=== PATIENT | female | born 1990 | race Caucasian/White ===

== ENCOUNTER → 2017-05-23 17:00 | Outpatient (CLI) | payer OTHER, MEDICAID, SELFPAY ==
[2017-05-23 16:46] VITALS: BP 126/76; BMI 28.0
== END ==
PROVIDERS: Family Provider Family Medicine; PCP Family Medicine; Visit Provider Obstetrics & Gynecology
DX: O09.899 Supervision of other high risk pregnancies, unspecified trimester (principal)
CPT/HCPCS: 86850; 86900

== ENCOUNTER → 2017-07-20 09:14 | Outpatient (CLI) | payer OTHER, MEDICAID, SELFPAY ==
--- NOTE | 2017-07-20 09:16 | US_ITS ---
STUDY: SECOND AND THIRD TRIMESTER OBSTETRICAL ULTRASOUND REASON FOR EXAM: Female, 26 years old. Evaluate anatomy LMP: 03/06/2017 TECHNIQUE: Transabdominal and Transvaginal PRIOR ULTRASOUND: None. FINDINGS: There is a single intrauterine fetus. The fetus is in a cephalic presentation. There is demonstrated cardiac activity with a heart rate of 155 bpm. There is a normal amniotic fluid volume. The largest amniotic fluid pocket measures 6.5 cm. The ROSANGELA was not calculated. The placenta is right posterolateral. There is a marginal previa. There are Grade 0 placental changes. The cervix measures 4.0 cm in length. The adnexal regions are not visualized. BIOMETRY: BPD: 4.20 cm: 18 weeks, 6 days HC: 16.47 cm: 19 weeks, 2 days AC: 14.07 cm: 19 weeks, 4 days FL: 2.82 cm: 18 weeks, 5 days CI: 75% FL/BPD: 67% : FL/AC: 20% HC/AC: 1.17 age by current US: 19 weeks, 1 days. WILL by current US: 12/13/2017. Estimated weight: 272 grams, +/- 40 grams, 26 %. Age by LMP: 19 weeks, 3 days. WILL by LMP: [id number]. ANATOMY: Gender: Male Cranium: Normal lateral ventricles. Lateral ventricle measures 0.63 cm Normal choroid plexus. Normal cerebellum cerebellum measures 1.74 cm. Normal cisterna magna. Cisterna magna measures 0.29 cm Normal face, nose and lips. Chest: Normal 4-chamber heart. Abdomen/Pelvis: Normal diaphragm. Normal stomach. Normal abdominal wall. Normal cord insertion. Normal 3 vessel cord. Normal kidneys. Normal bladder. Spine: Normal cervical spine. Normal thoracic spine. Normal lumbar spine. Normal sacrum. Extremities: Normal bilateral upper extremities. Normal bilateral lower extremities. US/OB Anatomy Scan IMPRESSION: Single viable intrauterine of approximately 19 weeks 1 day gestational age by current ultrasonographic measurement. A heart rate of 155 bpm is noted. Other findings as detailed above. Electronically Signed: Jeramy Gonzalez MD at 23:59 EDT , Service support ,
== END ==
PROVIDERS: Family Provider Family Medicine; PCP Family Medicine; Visit Provider Obstetrics & Gynecology
DX: Z34.81 Encounter for supervision of other normal pregnancy, first trimester (principal)
CPT/HCPCS: 76805

== ENCOUNTER → 2017-09-18 10:24 | Outpatient (CLI) | payer OTHER, MEDICAID, SELFPAY ==
[2017-09-18 09:28] LABS: Absolute Lymphocyte Count 1.61 X10^3/ul (0.83-4.51); Absolute Neutrophil Count 4.8 X10^3/uL (2.0-7.7); Basophil# 0.01 X10^3/uL; Basophil% 0.1 % (0-1); Eosinophil# 0.08 X10^3/uL; Eosinophils% 1.2 % (0-5); Hematocrit 30.3 % (37-47); Hemoglobin 10.1 g/dl (12.0-15.0); Lymphocyte # 1.61 X10^3/ul (4.0); Lymphocyte % 23.6 % (19-41); Mean Corp Hgb Conc 33.3 g/gl (32-36); Mean Corpuscular Hgb 30.8 pg (27.0-32.0); Mean Corpuscular Volume 92.4 fL (81-99); Mean Platelet Vol. 8.9 fl (6.2-12.0); Monocyte# 0.34 X10^3/uL; Neutrophil # 4.76 X10^3/uL (2.7-7.7); Platelet Count 263 K/mm3 (150-450); RBC Distribution Width CV 12.6 % (11.6-14.6); RBC Distribution Width SD 42.8 fl (35.1-43.9); Red Blood Count 3.28 M/mm3 (4.2-5.4); White Blood Count 6.8 K/mm3 (4.4-11.0)
[2017-09-18 09:29] LABS: POSITIVE COUNT NO; POSITIVE DIFFERENTIAL NO; POSITIVE MORPHOLOGY NO
[2017-09-18 09:49] LABS: Glucose Challenge Gest 1H 50g 118 mg/dL (70-140)
--- NOTE | 2017-09-18 10:27 | US_ITS ---
STUDY: SECOND AND THIRD TRIMESTER OBSTETRICAL ULTRASOUND - LIMITED REASON FOR EXAM: Female, 26 years old. Placental recheck. LMP: March 06, 2017. PRIOR ULTRASOUND: Comparison is made with prior examination dated July 20, 2017. TECHNIQUE: Transabdominal ultrasound evaluation was performed. FINDINGS: There is a single intrauterine fetus. The fetus is in a cephalic presentation. There is demonstrated cardiac activity with a heart rate of 150 bpm. There is a normal amniotic fluid volume. The largest amniotic fluid pocket measures 4.3 cm. The amniotic fluid index (ROSANGELA) is 12.86 cm. The placenta is posterior in location and is not low lying. There are Grade 1 placental changes. The cervix measures 4.01 cm in length. BIOMETRY: BPD: 7.22 cm: 29 weeks, 0 days HC: 26.63 cm: 29 weeks, 1 days AC: 23.83 cm: 28 weeks, 1 days FL: 5.36 cm: 28 weeks, 3 days Age by LMP: 28 weeks, 0 days. WILL by LMP: December 11, 2017. age by prior US: 27 weeks, 5 days. WILL by prior US: December 13, 2017. age by current US: 28 weeks, 5 days. WILL by current US: December 06, 2017. Estimated weight: 1216 grams, +/- 178 grams, 52 percentile. Gender: Male US/OB Limited With Biometrics IMPRESSION: Single live intrauterine gestation with a mean gestational age of 27 weeks and 5 days. The measurements obtained today following the normal expected range. The placenta is not low-lying. The lower tip is at 4.2 cm proximal to the cervix. Electronically Signed: Blas Sexton MD at 13:03 EDT Tel [phone], Service support ,
== END ==
PROVIDERS: Family Provider Family Medicine; PCP Family Medicine; Visit Provider Nurse Practitioner Women's Health
DX: O09.891 Supervision of other high risk pregnancies, first trimester (principal); O44.20 Partial placenta previa NOS or without hemorrhage, unspecified trimester; Z3A.00 Weeks of gestation of pregnancy not specified
CPT/HCPCS: 36415; 76816; 82950; 85025; 86850; 86900

== ENCOUNTER → 2017-11-19 08:31 | Outpatient (CLI) | payer OTHER, MEDICAID, SELFPAY ==
[2017-11-19 08:49] LABS: Absolute Lymphocyte Count 1.51 X10^3/ul (0.83-4.51); Absolute Neutrophil Count 5.4 X10^3/uL (2.0-7.7); Basophil# 0.02 X10^3/uL; Basophil% 0.3 % (0-1); Eosinophil# 0.09 X10^3/uL; Eosinophils% 1.2 % (0-5); Hematocrit 32.2 % (37-47); Hemoglobin 10.8 g/dl (12.0-15.0); Lymphocyte # 1.51 X10^3/ul (4.0); Lymphocyte % 20.5 % (19-41); Mean Corp Hgb Conc 33.5 g/gl (32-36); Mean Corpuscular Hgb 29.8 pg (27.0-32.0); Mean Platelet Vol. 9.5 fl (6.2-12.0); Monocyte# 0.34 X10^3/uL; Monocyte% 4.6 % (0-10); Neutrophil # 5.39 X10^3/uL (2.7-7.7); Neutrophil % 73.3 % (47-70); Platelet Count 257 K/mm3 (150-450); RBC Distribution Width CV 12.7 % (11.6-14.6); RBC Distribution Width SD 39.8 fl (35.1-43.9); Red Blood Count 3.62 M/mm3 (4.2-5.4); White Blood Count 7.4 K/mm3 (4.4-11.0)
[2017-11-19 08:51] LABS: POSITIVE COUNT NO; POSITIVE DIFFERENTIAL NO; POSITIVE MORPHOLOGY NO
== END ==
PROVIDERS: Family Provider Family Medicine; PCP Family Medicine; Visit Provider Nurse Practitioner Women's Health
DX: O99.019 Anemia complicating pregnancy, unspecified trimester (principal); Z3A.00 Weeks of gestation of pregnancy not specified
CPT/HCPCS: 36415; 85025

== ENCOUNTER → 2017-11-19 12:51 | Outpatient (CLI) | payer OTHER, MEDICAID, SELFPAY ==
[2017-11-19 14:45] LABS: Group B Strep DNA By PCR Negative (Negative); Internal Control PASS; Probe Check PASS; Specimen Processing Control PASS
== END ==
PROVIDERS: Visit Provider Nurse Practitioner Women's Health
DX: Z34.90 Encounter for supervision of normal pregnancy, unspecified, unspecified trimester (principal)
CPT/HCPCS: 87081; 87653

== ENCOUNTER 2017-11-30 01:30 | Inpatient (IN) | payer OTHER, MEDICAID, SELFPAY ==
[2017-11-30 02:05] VITALS: BMI 30.8
[2017-11-30] MEDS: Lactated Ringers 1,000 ML 50 ML IV ×2 (02:05→03:03)
[2017-11-30 02:19] LABS: Hematocrit 31.6 % (37-47); Hemoglobin 10.6 g/dl (12.0-15.0); Mean Corp Hgb Conc 33.5 g/gl (32-36); Mean Corpuscular Hgb 29.1 pg (27.0-32.0); Mean Corpuscular Volume 86.8 fL (81-99); Mean Platelet Vol. 9.6 fl (6.2-12.0); Platelet Count 234 K/mm3 (150-450); RBC Distribution Width SD 41.7 fl (35.1-43.9); Red Blood Count 3.64 M/mm3 (4.2-5.4); White Blood Count 9.1 K/mm3 (4.4-11.0)
[2017-11-30 02:23] LABS: Scan Indicated on CBC? Y/N NO
[2017-11-30] MEDS: fentaNYL-bupivacaine (epidural) 100 ML BAG EPIDURAL (03:31)
--- NOTE | 2017-11-30 07:03 | PCM.HP.OB ---
- Problem List (1) Anemia affecting Status: Acute Qualifiers: Comment: 09/18: start Fe, repeat CBC 4 weeks (2) History of depression Status: Acute Comment: 08/06: declines need for Rx at this time (3) Rh negative status during Status: Acute Qualifiers: Comment: rhogam 28 weeks and PRN (4) Supervision of normal Status: Acute Qualifiers: Comment: PRR WILL 12/11/17 PC Rosalinda boyfriend Papito (5) Active labor at term Status: Acute History Date of Admission: 11/30/17 Final WILL: 12/11/17 Gestational age: 38 Weeks and 3 Days History of this : This is a 26 year-old, at 38 weeks gestational age presents IAL. she has had an uncomplicated . co some small vb, regular ctx denies lof and admits good fm. Medical History: Medical History (Last Reviewed 11/29/17 @ 09:08 by Shanna Prado) Depression F32.9 Surgical History: Surgical History (Last Reviewed 11/29/17 @ 09:08 by Shanna Prado) History of ear surgery Z98.890 Allergies cefixime [From Suprax] Allergy (Verified 11/30/17 02:04) Rash Home Medications: Home Medications vitamin,calcium,havkchvz-qoyv-myata acid tablet 1 tab PO QDAY 05/09/17 ferrous fumarate 324 mg (106 mg iron) tablet 324 mg PO QDAY tab 11/05/17 Smoking Status: Former smoker Alcohol: None Number of Fetus(es): 1 Heart Tracin moderate variability reactive no decelerations category I tracing TOCO Analysis: regular q 2-4 History Past Pregnancies: Past Pregnancies previous term uncomplicated Delivery Date Name GA/Weeks Outcome Route Weight Infant Gender Labor Length Anesthesia Delivery Location Provider FOB Labs: [facility] Results 11/30/17 11/30/17 02:05 02:05 WBC 9.1 RBC 3.64 L Hgb 10.6 L Hct 31.6 L MCV 86.8 MCH 29.1 MCHC 33.5 RDW 13.0 RDW Differential 41.7 Plt Count 234 MPV 9.6 Blood Type A NEGATIVE Antibody Screen NEGATIVE Course Did the patient receive Yes care? Labs Blood Type: A RH: NEGATIVE RPR/VDRL/Syphilis Nonreactive Rubella status Immune HbSAg Negative Date Done: 05/09/17 Chlamydia Negative Gonorrhea Negative HIV/AIDS Non-Reactive Group B Strep: Negative Current Obstetrical History Gestational Diabetes No Incompetent Cervix No Infertility No IUGR No Macrosomia No Hypertension/Pre-eclampsia No Placenta Previa/Abruption Yes: resolved PTL/PROM No Uterine anomaly No Oligohydramnios No Polyhydramnios No Multiple gestation No Past Medical History Asthma No Diabetes No Hypertension No Heart disease No Mitral valve prolapse No Neurologic/Seizure disorder/ No Migraines Kidney disease No Liver disease No Varicosities No Clotting disorders/Hx of DVT No Thyroid Dysfunction No Other medical diseases No Psychiatric disorders Yes: hx depression Major trauma No Abnormal PAP smear Yes: 2013 Sleep apnea No Mammogram in the last 2 years No Social History Marital Status: SINGLE Alleged father Papito Hx Smoking Yes Smoking Status Former smoker Expected Delivery Method: Spontaneous Vaginal Review of Systems Constitutional: Denies: Fever, Malaise Eyes: Denies: Blurred vision, Vision Change HEENT: Denies: Head Aches, Visual Changes Cardiovascular: Denies: Chest Pain, Palpitations Respiratory: Denies: Cough, Shortness of Breath, Wheezing Gastrointestinal: Denies: Abdominal Pain, Diarrhea, Nausea, Vomiting Genitourinary: Denies: Dysuria, Hematuria Musculoskeletal: Denies: Joint Pain, Muscle pain Skin: Denies: Lesions, Rash Neurological: Denies: Blurred vision, Focal weakness, Headaches Psychiatric: Denies: Anxiety, Depression Endocrine: Denies: Heat/ Cold Intolerance Hematologic/ Lymphatic: Denies: Easy Bruising, Easy Bleeding Physical Exam General: Alert, Cooperative, No apparent distress HEENT: Atraumatic, Normocephalic. Negative for: Thyromegaly, Lymphadenopathy Cardiovascular: Regular rate Lungs: Normal air movement Abdomen: Soft, Non Tender, Gravid Neurological: Deep Tendon Reflexes 2+/4 and Symmetrical, Neuro grossly intact. Negative for: Clonus TEACHER LEARNING DISABLED: Normal external genitalia. Negative for: Vulvar lesions Estimated gestational size: Appropriate for gestational size Presentation: Cephalic Cervix Dilation (cm): 6 Station: -1 Effacement (%): 70 Assessment/Plan All Active Problems (Last Reviewed 11/29/17 @ 09:08 by Shanna Prado) Active labor at term (Acute) Anemia affecting (Acute) History of depression (Acute) Rh negative status during (Acute) Supervision of normal (Acute) Marginal placenta previa (Resolved) This is a 26 year-old, at 38 weeks gestational age presents IAL Patient presents IAL, plan expectant management for , pitocin/AROM PRN if needed. Pain management: plans epidural. GBS negative. Management of any complications: none I have reviewed the [facility] and made any clinically relevant updates.
--- NOTE | 2017-11-30 07:07 | HP.PCM_ITS ---
- Problem List (1) Anemia affecting Status: Acute Qualifiers: Comment: 09/18: start Fe, repeat CBC 4 weeks (2) History of depression Status: Acute Comment: 08/06: declines need for Rx at this time (3) Rh negative status during Status: Acute Qualifiers: Comment: rhogam 28 weeks and PRN (4) Supervision of normal Status: Acute Qualifiers: Comment: PRR WILL 12/11/17 PC Rosalinda boyfriend Papito (5) Active labor at term Status: Acute History Date of Admission: 11/30/17 Final WILL: 12/11/17 Gestational age: 38 Weeks and 3 Days History of this : This is a 26 year-old, at 38 weeks gestational age presents IAL. she has had an uncomplicated . co some small vb, regular ctx denies lof and admits good fm. Medical History: Medical History (Last Reviewed 11/29/17 @ 09:08 by Shanna Prado) Depression F32.9 Surgical History: Surgical History (Last Reviewed 11/29/17 @ 09:08 by Shanna Prado) History of ear surgery Z98.890 Allergies cefixime [From Suprax] Allergy (Verified 11/30/17 02:04) Rash Home Medications: Home Medications vitamin,calcium,cgyevrsp-nylr-pkxev acid tablet 1 tab PO QDAY 05/09/17 ferrous fumarate 324 mg (106 mg iron) tablet 324 mg PO QDAY tab 11/05/17 Smoking Status: Former smoker Alcohol: None Number of Fetus(es): 1 Heart Tracin moderate variability reactive no decelerations category I tracing TOCO Analysis: regular q 2-4 History Past Pregnancies: Past Pregnancies previous term uncomplicated Delivery Date Name GA/Weeks Outcome Route Weight Infant Gender Labor Length Anesthesia Delivery Location Provider FOB Labs: [facility] Results 11/30/17 11/30/17 02:05 02:05 WBC 9.1 RBC 3.64 L Hgb 10.6 L Hct 31.6 L MCV 86.8 MCH 29.1 MCHC 33.5 RDW 13.0 RDW Differential 41.7 Plt Count 234 MPV 9.6 Blood Type A NEGATIVE Antibody Screen NEGATIVE Course Did the patient receive Yes care? Labs Blood Type: A RH: NEGATIVE RPR/VDRL/Syphilis Nonreactive Rubella status Immune HbSAg Negative Date Done: 05/09/17 Chlamydia Negative Gonorrhea Negative HIV/AIDS Non-Reactive Group B Strep: Negative Current Obstetrical History Gestational Diabetes No Incompetent Cervix No Infertility No IUGR No Macrosomia No Hypertension/Pre-eclampsia No Placenta Previa/Abruption Yes: resolved PTL/PROM No Uterine anomaly No Oligohydramnios No Polyhydramnios No Multiple gestation No Past Medical History Asthma No Diabetes No Hypertension No Heart disease No Mitral valve prolapse No Neurologic/Seizure disorder/ No Migraines Kidney disease No Liver disease No Varicosities No Clotting disorders/Hx of DVT No Thyroid Dysfunction No Other medical diseases No Psychiatric disorders Yes: hx depression Major trauma No Abnormal PAP smear Yes: 2013 Sleep apnea No Mammogram in the last 2 years No Social History Marital Status: SINGLE Alleged father Papito Hx Smoking Yes Smoking Status Former smoker Expected Delivery Method: Spontaneous Vaginal Review of Systems Constitutional: Denies: Fever, Malaise Eyes: Denies: Blurred vision, Vision Change HEENT: Denies: Head Aches, Visual Changes Cardiovascular: Denies: Chest Pain, Palpitations Respiratory: Denies: Cough, Shortness of Breath, Wheezing Gastrointestinal: Denies: Abdominal Pain, Diarrhea, Nausea, Vomiting Genitourinary: Denies: Dysuria, Hematuria Musculoskeletal: Denies: Joint Pain, Muscle pain Skin: Denies: Lesions, Rash Neurological: Denies: Blurred vision, Focal weakness, Headaches Psychiatric: Denies: Anxiety, Depression Endocrine: Denies: Heat/ Cold Intolerance Hematologic/ Lymphatic: Denies: Easy Bruising, Easy Bleeding Physical Exam General: Alert, Cooperative, No apparent distress HEENT: Atraumatic, Normocephalic. Negative for: Thyromegaly, Lymphadenopathy Cardiovascular: Regular rate Lungs: Normal air movement Abdomen: Soft, Non Tender, Gravid Neurological: Deep Tendon Reflexes 2+/4 and Symmetrical, Neuro grossly intact. Negative for: Clonus SYSTEM ANALYST: Normal external genitalia. Negative for: Vulvar lesions Estimated gestational size: Appropriate for gestational size Presentation: Cephalic Cervix Dilation (cm): 6 Station: -1 Effacement (%): 70 Assessment/Plan All Active Problems (Last Reviewed 11/29/17 @ 09:08 by Shanna Prado) Active labor at term (Acute) Anemia affecting (Acute) History of depression (Acute) Rh negative status during (Acute) Supervision of normal (Acute) Marginal placenta previa (Resolved) This is a 26 year-old, at 38 weeks gestational age presents IAL Patient presents IAL, plan expectant management for , pitocin/AROM PRN if needed. Pain management: plans epidural. GBS negative. Management of any complications: none I have reviewed the [facility] and made any clinically relevant updates.
[2017-11-30] MEDS: Oxytocin 30 units/NS 500 ml 30 UNITS/500 ML IV.SOLN 334 UNITS IV (08:51)
[2017-11-30] MEDS: Methylergonovine 0.2 MG/ML Ampul IM (08:57)
[2017-11-30] MEDS: Ondansetron 4 MG/2 ML Vial IV (09:19)
[2017-11-30] MEDS: Oxytocin 30 units/NS 500 ml 30 UNITS/500 ML IV.SOLN 167 UNITS IV (09:21)
--- NOTE | 2017-11-30 11:15 | NURSING ---
Report given to Herlinda Raymundo RN. She will assume care of patient at this time.
[2017-11-30] MEDS: Ketorolac 10 MG Tablet PO ×2 (14:09→21:19)
[2017-11-30] MEDS: Prenatal Vits Tablet 1 TABLET PO (14:10)
[2017-11-30 15:00] VITALS: BP 121/68; PULSE 88; RESP 16; TEMP 36.9
[2017-11-30] MEDS: Acetaminophen 500 MG Tablet 1000 MG PO (17:15)
[2017-11-30 19:33] VITALS: BP 127/62; PULSE 88; RESP 18; TEMP 36.8
[2017-12-01] VITALS: BP 94/50; PULSE 87; RESP 16; TEMP 35.9
[2017-12-01 04:00] VITALS: BP 131/58; PULSE 88; RESP 16; TEMP 36.4
[2017-12-01] MEDS: Acetaminophen 500 MG Tablet 1000 MG PO (07:58)
[2017-12-01 08:00] VITALS: BP 127/59; PULSE 75; RESP 16; TEMP 36.9
[2017-12-01] MEDS: Ferrous Sulfate 325 MG Tablet PO (08:08)
[2017-12-01] MEDS: Prenatal Vits Tablet 1 TABLET PO (11:45)
[2017-12-01 14:15] VITALS: BP 116/64; PULSE 83; RESP 16; TEMP 36.8
--- NOTE | 2017-12-01 14:19 | PCM.OB.VAG ---
- Problem List (1) Anemia affecting Status: Acute Qualifiers: Comment: 09/18: start Fe, repeat CBC 4 weeks (2) History of depression Status: Acute Comment: 08/06: declines need for Rx at this time (3) Rh negative status during Status: Acute Qualifiers: Comment: rhogam 28 weeks and PRN (4) Supervision of normal Status: Acute Qualifiers: Comment: PRR WILL 12/11/17 PC Rosalinda boyfriend Papito (5) Active labor at term Status: Acute Vaginal Delivery Maternal Presentation: Active Labor Patient presented in active labor Amniotic Membrane Rupture Type: Spontaneous Final WILL: 12/11/17 Gestational age: 38 Weeks and 4 Days Date of Procedure: 11/30/17 Surgery/ Procedure Performed: Spontaneous Vaginal Delivery Type of Anesthesia: Epidural Description of Procedure: Patient began pushing and delivered the head in the COURTNEY presentation. The head was delivered atraumatically. The anterior and posterior shoulders delivered without complication followed by the rest of the and the infant was placed on the maternal abdomen. Delayed cord clamping was employed for approximately 60 seconds. Cord was clamped and cut and gentle traction was applied to the cord and the placenta delivered spontaneously immediately following it was noted to be intact with three-vessel cord. The perineum and vagina were inspected and noted to have a second-degree laceration repaired in the usual fashion with 3-0 Vicryl. EBL was 600 cc, there was some uterine atony that was treated with Methergine and bimanual massage. Patient and tolerated delivery well. Presentation: COURTNEY Placental Delivery Description: Spontaneous Placenta Disposition: [facility] Cord Vessel Description: 3 Vessels Nuchal Cord Compression: With compression Cord Entanglement: None Estimated Blood Loss: 600 Infant A gender: Male Episiotomy Description: None Laceration: Perineal Extension/lac, 2nd degree Medications given after delivery: IV Pitocin, IM Methergin Complications: - - Mild hemorrhage
--- NOTE | 2017-12-01 14:21 | PCM.PN.OB ---
Patient Problems: Active and Suspected Problems (Last Reviewed 11/29/17 @ 09:08 by Shanna Prado) Active labor at term (Acute) Subjective: Doing well no complaints no chest pain shortness of - Physical Exam General: Alert, Oriented x3 Vital Signs Temp Pulse Resp BP 98.3 F 83 16 116/64 12/01/17 14:15 12/01/17 14:15 12/01/17 14:15 12/01/17 14:15 Oxygen Delivery Method Room Air Weight: 202 lb 13.204 oz Body Mass Index (BMI) 30.8 Intake and Output for Last 24 Hours 11/29/17 11/30/17 12/01/17 23:59 23:59 23:59 Intake Total 1526 / 1526 Output Total 1050 / 1050 Balance 476 / 476 Medical Necessity - Tobacco Use Smoking Status: Former smoker Assessment/Plan All Active Problems (Last Reviewed 11/29/17 @ 09:08 by Shanna Prado) Active labor at term (Acute) Anemia affecting (Acute) History of depression (Acute) Rh negative status during (Acute) Supervision of normal (Acute) Marginal placenta previa (Resolved) Status post routine care DC home today breast-feeding will restart antidepressant discussed risk of breast-feeding patient wishes to proceed and I believe this is reasonable.
--- NOTE | 2017-12-01 14:22 | PCM.DCVAG ---
Discharge Diet: No Restrictions Discharge Activity: Return to Normal Activity, May not drive while taking narcotic pain medications., May Shower May resume sexual activity in: 4-6 weeks Call your doctor if your incision/area has: Continuous Slow Oozing, Sudden Increased Bleeding, Increased Pain/ Swelling, Increased Redness, Foul Smelling Discharge Additional Instructions: If you experience any of the following, contact your healthcare provider. Bleeding that soaks a pad every hour for 2 hours Fever 100.4 or higher Unrelieved incision or abdominal pain Swelling, redness, discharge or bleeding from your incision or episiotomy site Your incision begins to separate Problems urinating (including inability to urinate or burning while urinating). Visual changes Severe headache Flu-like symptoms Pain or redness in one of both of your breasts Pain, warmth, tenderness or swelling in your legs, especially the calf area Frequent nausea and vomiting Symptoms of depression or anxiety If you experience any of the following, call 911 or go to the nearest Emergency Room. Chest pain Problems breathing Seizure activity Partial or complete paralysis of a body part, slurred speech, weakness or drooping of the face, or a sudden inability to walk or hold your balance Allergies/Adverse Reactions: Allergies cefixime [From Suprax] Allergy (Verified 11/30/17 02:04) Rash Medications to take at Discharge vitamin,calcium,fjxldxvp-jamn-hhgqt acid tablet 1 tab PO QDAY 05/09/17 ferrous fumarate 324 mg (106 mg iron) tablet 324 mg PO QDAY tab 11/05/17 Please Follow Up With: Sunitha Adhikari MD - [phone] When: Call to make an appointment with your doctor in 6 weeks. If you had elevated Blood pressure or 4th degree laceration you will need to be seen in 2 weeks. Primary Care Physician: Kelly Smith DO [Primary Care Provider] - Test Results: Test results from this visit will be discussed in further detail at your follow-up appointment, if applicable.
--- NOTE | 2017-12-01 14:23 | DCINST_ITS ---
Discharge Diet: No Restrictions Discharge Activity: Return to Normal Activity, May not drive while taking narcotic pain medications., May Shower May resume sexual activity in: 4-6 weeks Call your doctor if your incision/area has: Continuous Slow Oozing, Sudden Increased Bleeding, Increased Pain/ Swelling, Increased Redness, Foul Smelling Discharge Additional Instructions: If you experience any of the following, contact your healthcare provider. * Bleeding that soaks a pad every hour for 2 hours * Fever 100.4 or higher * Unrelieved incision or abdominal pain * Swelling, redness, discharge or bleeding from your incision or episiotomy site * Your incision begins to separate * Problems urinating (including inability to urinate or burning while urinating) . * Visual changes * Severe headache * Flu-like symptoms * Pain or redness in one of both of your breasts * Pain, warmth, tenderness or swelling in your legs, especially the calf area * Frequent nausea and vomiting * Symptoms of depression or anxiety If you experience any of the following, call 911 or go to the nearest Emergency Room. * Chest pain * Problems breathing * Seizure activity * Partial or complete paralysis of a body part, slurred speech, weakness or drooping of the face, or a sudden inability to walk or hold your balance Allergies/Adverse Reactions: Allergies cefixime [From Suprax] Allergy (Verified 11/30/17 02:04) Rash Medications to take at Discharge vitamin,calcium,bceppjnz-fzlr-yuwdb acid tablet 1 tab PO QDAY 05/09/17 ferrous fumarate 324 mg (106 mg iron) tablet 324 mg PO QDAY tab 11/05/17 Please Follow Up With: Sunitha Adhikari MD - [phone] When: Call to make an appointment with your doctor in 6 weeks. If you had elevated Blood pressure or 4th degree laceration you will need to be seen in 2 weeks. Primary Care Physician: Kelly Smith DO [Primary Care Provider] - Test Results: Test results from this visit will be discussed in further detail at your follow- up appointment, if applicable.
== END 2017-12-01 14:50 | disposition home or self-care (01) | DRG 774 ==
PROVIDERS: Admitting Provider Obstetrics & Gynecology; Family Provider Family Medicine; PCP Family Medicine; Visit Provider Obstetrics & Gynecology
DX: O99.02 Anemia complicating childbirth (principal); O72.1 Other immediate postpartum hemorrhage; D64.9 Anemia, unspecified; O70.1 Second degree perineal laceration during delivery; Z3A.38 38 weeks gestation of pregnancy; Z37.0 Single live birth; Z87.891 Personal history of nicotine dependence
CPT/HCPCS: 59025; 59050; 85027; 85461; 86850; 86900; 90384; 99218; J7120; G0378; J2405; J2790

== ENCOUNTER → 2018-05-17 10:50 | Outpatient (CLI) | payer OTHER, SELFPAY ==
[2018-05-17 10:50] VITALS: BMI 28.0
[2018-05-17 12:32] LABS: M R Staph aureus DNA By PCR POSITIVE (Negative); Probe Check PASS; Staph aureus DNA By PCR POSITIVE (Negative)
== END ==
PROVIDERS: Visit Provider Ophthalmology
DX: H00.035 Abscess of left lower eyelid (principal)
CPT/HCPCS: 87070; 87077; 87186; 87205; 87640

== ENCOUNTER 2019-01-01 07:22 | Day surgery (SDC) | payer OTHER, SELFPAY ==
[2018-05-17 10:50] VITALS: BMI 28.0
[2019-01-01 07:37] VITALS: BP 131/60; PULSE 86; RESP 16; TEMP 36.9; O2SAT 99; BMI 31.2
[2019-01-01 07:45] LABS: Internal QC Validated? YES +Cl - CLEAR BKGD; Pregnancy, Urine Negative Negative
[2019-01-01] MEDS: Ciprofloxacin 0.3% 2.5ml Bottle 1 DRP (09:03)
--- NOTE | 2019-01-01 09:07 | DCINST_ITS ---
Discharge Diet: No Restrictions Discharge Activity: Return to Normal Activity Additional Activity Instructions:: Keep ears dry. Allergies/Adverse Reactions: Allergies cefixime [From Suprax] Allergy (Verified 01/01/19 07:32) Rash Medications to take at Discharge norethindrone (contraceptive) 0.35 mg tablet 0.35 mg PO DAILY #28 tab 01/24/18 Vilazodone Hydrochloride [Viibryd] 40 mg PO DAILY 12/26/18 Primary Care Physician: Kelly Smith DO [Primary Care Provider] - Test Results: Test results from this visit will be discussed in further detail at your follow- up appointment, if applicable. Please Follow Up With: Moses Alexandra MD - [phone] When: 1-2 weeks.
[2019-01-01 09:12] VITALS: BP 115/73; BP 131/60; PULSE 73; RESP 16; TEMP 36.3; O2SAT 100
[2019-01-01 09:15] VITALS: BP 120/67; BP 131/60; PULSE 75; RESP 16; O2SAT 99
[2019-01-01 09:19] VITALS: BP 120/73; BP 131/60; PULSE 62; RESP 16; O2SAT 100
[2019-01-01 09:20] VITALS: BP 120/83; BP 131/60; PULSE 74; RESP 16; TEMP 36.4; O2SAT 100
[2019-01-01 09:30] VITALS: BP 131/60
--- NOTE | 2019-01-01 09:42 | OP.PCM_ITS ---
Report of Operation Date of Procedure: 01/01/19 Pre-Operative Diagnosis: Chronic eustachian tube dysfunction with serous otitis media Post-Operative Diagnosis: Same Surgery/Procedure Performed:: Bilateral myringotomy with T-type tympanostomy tube placement. Type of Anesthesia:: General - Via facemask Anesthesiologist: Jose Saxena CRNA Estimated Blood Loss (mL): Negligible Description of Procedure: The patient was transported to the operating room and remained on the ambulatory cart in the supine position. After the administration of adequate general mask anesthesia patient was appropriately positioned and the left ear was examined with the operating room microscope. A previously placed T-type tympanostomy tube was still present but totally obstructed with mucus. This was removed and the middle ear suctioned clear. Ciprofloxacin drops were rinsed through the middle ear and suctioned away after which a fresh T-type tube was placed uneven tfully. Attention was then directed to the right ear which was examined and treated in similar fashion. In contrast, the right tympanic membrane was totally intact and a previously placed tympanostomy tube was in the middle ear cleft. A fresh myringotomy was created in the inferior aspect after which the previously placed T-tube was removed from the middle ear cleft. Some ciprofloxacin drops were rinsed through the middle ear and a fresh T-type tube was placed uneventfully. This point the procedure was terminated. Patient tolerated procedure well, did not sustain any intraoperative anesthetic or surgical complication, was taken to the PACU where she was noted to be in satisfactory condition. Moses Alexandra MD
== END 2019-01-01 09:41 | disposition home or self-care (01) ==
LOC: SDC 07:22 → AC 07:24
PROVIDERS: Anesthesiology; Family Provider Family Medicine; PCP Family Medicine; Referring Provider Otolaryngology Otolaryngology/Facial Plastic Surgery; Visit Provider Otolaryngology Otolaryngology/Facial Plastic Surgery
PROC: (CPT 69436; principal; 2019-01-01 08:40)
DX: H90.2 Conductive hearing loss, unspecified (principal); H69.83 Other specified disorders of Eustachian tube, bilateral; F41.9 Anxiety disorder, unspecified; F32.9 Major depressive disorder, single episode, unspecified; Z79.899 Other long term (current) drug therapy; Z87.891 Personal history of nicotine dependence
CPT/HCPCS: 00126; 69436; 81025; J7120